=== PATIENT | male | born 1950 | race Caucasian/White ===

== ENCOUNTER 2022-04-12 18:35 | Emergency (ER) | payer OTHER | END 2022-04-12 20:17 | disposition left against medical advice (07) | LOC: FER 18:35 | DX: R46.89 Other symptoms and signs involving appearance and behavior (principal); Z76.5 Malingerer [conscious simulation]; Z88.2 Allergy status to sulfonamides; Z88.5 Allergy status to narcotic agent; Z28.310 Unvaccinated for COVID-19; Z53.29 Procedure and treatment not carried out because of patient's decision for other reasons | CPT/HCPCS: 99282 ==